=== PATIENT | male | born 1960 | race Hispanic/Latino ===

== ENCOUNTER 2018-04-12 18:48 | Emergency (ER) | payer BC ==
[~2018-04-12] VITALS: Ht 167.6 cm; Wt 99.8 kg
[~2018-04-12 18:48] MED LIST: ASPIRIN EC81 MG PO; FLEXERIL10 MG PO; METOPROLOL SUCC50 MG PO; PERCOCET 7.5-31 EACH PO; PRAVASTATIN SOD80 MG PO
[2018-04-12 23:21] LABS: BASOPHILS # (AUTO) 0.1 (0.0-0.1); BASOPHILS % 1.1 % (0.0-1.0); EOSINOPHILS # (AUTO) 0.2 (0.0-0.4); EOSINOPHILS % 4.3 % (0.0-6.0); HEMATOCRIT 35.7 % (38.2-49.6); HEMOGLOBIN 12.6 g/dL (14.0-18.0); LYMPHOCYTES # (AUTO) 2.3 (1.0-3.2); LYMPHOCYTES % 48.2 % (18.0-39.1); MEAN CORPUSCULAR HEMOGLOBIN 35.2 pg (28-32); MEAN CORPUSCULAR HGB CONC 35.3 g/dL (31-35); MEAN CORPUSCULAR VOLUME 99.7 fL (81-99); MONOCYTES # (AUTO) 0.5 (0.2-0.8); MONOCYTES % 10.7 % (4.4-11.3); NEUTROPHILS # (AUTO) 1.7 (2.1-6.9); NEUTROPHILS % 35.7 % (38.7-80.0); PLATELET COUNT 98 x10e3/uL (140-360); RED BLOOD COUNT 3.58 x10e6/uL (4.3-5.7); RED CELL DISTRIBUTION WIDTH 13.5 % (11.7-14.4)
[2018-04-12 23:32] LABS: ANION GAP 9.8 mmol/L (8-16); BLOOD UREA NITROGEN 8 mg/dL (7-26); BUN/CREATININE RATIO 10 (6-25); CALCIUM 8.8 mg/dL (8.4-10.2); CARBON DIOXIDE 29 mmol/L (22-29); CHLORIDE 104 mmol/L (98-107); CREATININE, SERUM 0.79 mg/dL (0.72-1.25); EST GLOMERULAR FILTRATION RATE > 60 ML/MIN (60-); GLUCOSE 176 mg/dL (74-118); POTASSIUM 3.8 mmol/L (3.5-5.1); SODIUM 139 mmol/L (136-145)
[2018-04-12] MEDS ORDERED: SODIUM CHLORIDE 0.9% 50ML 50 ML ONE (23:46)
[2018-04-12] MEDS ORDERED: IOPAMIDOL 370 MG/ML 200 ML INFUS..BTL INJ ONE (23:47)
--- NOTE | 2018-04-13 00:34 | Diagnostic Imaging Report ---
History: Neck mass Comparison studies: None Technique: Axial, coronal and sagittal images from the skull base to the thoracic inlet. Coronal and sagittal images reconstructed from the axial data. Skin marker placed in the area of concern Intravenous contrast: 100 cc of Omnipaque 300. Findings: Soft tissues: Peripherally enhancing 1.0 cm nodule in the left sublingual space inferior to the insertion of the genu hyoid muscle at the geniculate apophysis. Adjacent fatty stranding. Masses: None. Lymph nodes: No radiographically significant adenopathy. Vessels: Arteries and veins are patent. Glands (thyroid, parotid and submandibular): Normal in size and symmetric. No masses. Orbits: No abnormalities. Paranasal sinuses: Mild non specific mucosal thickening at the maxillary sinuses Temporal bones: No abnormalities. Skull base and facial bones: Intact. Cervical spine: Patent canal and foramina. No dentition at the maxilla IMPRESSION: 1. Peripherally enhancing 1.0 cm nodule in the left sublingual space with adjacent fatty stranding, may represent an necrotic lymph node or developing abscess. Signed by: DR Jeffery Sommers M.D. on 04/13/2018 12:30 AM
[2018-04-13 01:03] VITALS: BP 156/78
== END 2018-04-13 01:54 | disposition home or self-care (01) ==
LOC: ER 18:48
DX: R59.0 Localized enlarged lymph nodes (principal); I25.10 Atherosclerotic heart disease of native coronary artery without angina pectoris; I10 Essential (primary) hypertension; F17.210 Nicotine dependence, cigarettes, uncomplicated
CPT/HCPCS: 36415; 70491; 80048; 85025; 99284; Q9967